=== PATIENT | female | born 1990 | race Caucasian/White ===

== ENCOUNTER 2016-11-30 19:14 | Emergency (ER) | payer OTHER, BC ==
[~2016-11-30] VITALS: Ht 170.2 cm; Wt 87.7 kg
[2016-11-30 19:23] VITALS: TEMP 36.6; Ht 170.2 cm; Wt 87.7 kg
[2016-11-30] MEDS ORDERED: ACETAMINOPHEN 500 MG TAB PO STA (19:44)
[2016-11-30] MEDS ORDERED: IBUPROFEN 600 MG TAB PO STA (19:44)
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
[2016-11-30] MEDS ORDERED: PRVHFAIN PO (20:18)
[2016-11-30] MEDS ORDERED: EPP3/2 IM (20:18)
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
[2016-11-30 20:38] VITALS: BP 128/84; PULSE 64; O2SAT 99
== END 2016-11-30 20:38 | disposition home or self-care (01) ==
LOC: C.EDB 19:16 → C.EDC 20:38
DX: S16.1XXA Strain of muscle, fascia and tendon at neck level, initial encounter (principal); R51 Headache; V40.5XXA Car driver injured in collision with pedestrian or animal in traffic accident, initial encounter; Y92.488 Other paved roadways as the place of occurrence of the external cause; F17.210 Nicotine dependence, cigarettes, uncomplicated

== ENCOUNTER → 2018-03-28 | Outpatient (CLI) | payer BC ==
[~2018-03-28] MED LIST: EPP3/2 IM; PRVHFAIN PO
== END | disposition home or self-care (01) ==
LOC: C.LABSPEC 12:40
PROVIDERS: ATTEND Nurse Practitioner
DX: Z13.220 Encounter for screening for lipoid disorders (principal); Z13.1 Encounter for screening for diabetes mellitus